=== PATIENT | male | born 1980 | race Caucasian/White ===

== ENCOUNTER → 2024-11-22 | Outpatient (CLI) | payer BC, SELFPAY ==
--- NOTE | 2024-11-22 14:00 | XR_ITS ---
Examination: MRI thoracic spine without contrast. Date and time of exam: November 22, 2024 1426 hrs. Indications: Back pain 3 years Technique: Multiple sagittal and axial images of the thoracic spine have been obtained. T1 weighted localizer, sagittal T2 weighted images, TR 30-50, TE 148, T1 weighted sagittal images, TR 650, TE 14, T2-weighted transverse images, TR 6770, TE 142 Findings: Adequate alignment thoracic vertebral bodies Diffuse moderate to advanced thoracic disc narrowing Diffuse thoracic disc desiccation Axial images demonstrate no focal thoracic disc protrusion, no impingement upon the thoracic cord. No prostate enlargement thoracic cord No thoracic syrinx cavity Impression: Moderate to advanced diffuse thoracic degenerative disc disease
--- NOTE | 2024-11-22 14:30 | XR_ITS ---
Examination: MRI lumbar spine without contrast Date and time of exam: November 22, 2024 1514 hrs. Indications: Lower back pain beginning 3 years ago Technique: Multiple MRI axial and sagittal sections lumbar spine. Sagittal T2-weighted images, TR 3500, TE 118 T1 weighted transverse sections, TR 688 T8.5, T2-weighted sagittal sections T1 weighted sagittal sections TR 621, TE 30 T2 axial sections, TR 4, 190, TE 84. Findings: Moderate to advanced disc narrowing L3-L4 with reactive bony endplate change Mild disc narrowing L5-S1 No spondylolisthesis L5-S1 6 mm central lumbar disc bulge contiguous with the S1 nerve roots L4-L5 foraminal disc bulges but no ganglionic compression L3-L4 no disc protrusion L2-L3 no disc protrusion L1-L2 no disc protrusion Impression: L5-S1 6 mm central lumbar disc bulge contiguous with the S1 nerve roots
== END | disposition home or self-care (01) ==
LOC: SMRI 13:28
PROVIDERS: PCP Internal Medicine; Referring Provider Internal Medicine; Visit Provider Internal Medicine
DX: M51.34 Other intervertebral disc degeneration, thoracic region (principal); M51.379 Other intervertebral disc degeneration, lumbosacral region without mention of lumbar back pain or lower extremity pain
CPT/HCPCS: 72146; 72148